=== PATIENT | female | born 1970 | race American Indian/Alaskan Native ===

== ENCOUNTER 2016-11-21 14:27 | Inpatient (IN) | payer BC ==
[2016-11-21] MEDS ORDERED: ZOFRAN IV ONE ×2 (15:35→21:21)
[2016-11-21] MEDS ORDERED: NACL 0.9% 1000 ML 1,000 ML IV ONE ×2 (15:36→21:21)
--- NOTE | 2016-11-21 15:36 | Emergency Department Report ---
<JUDITH STEWART - Last Filed: 11/21/16 18:57> ED General Adult HPI - General Chief complaint: Nausea/Vomiting/Diarrhea Stated complaint: NAUSEA/HOT Time Seen by Provider: 11/21/16 15:20 Source: patient Mode of arrival: Wheelchair Limitations: No Limitations - History of Present Illness Initial comments: Patient comes in the ER today after having a single episode approximately one hour ago while she was working upstairs and she had sudden episode of feeling very hot as well as nauseated. Patient denies any actual vomiting. Patient does state that she has pain in her upper back without any known injury. Patient says that she is feeling a little bit better now as she has cooled off but she continues to be nauseated with back pain. Denies any chest pain, shortness of breath, headache. Patient does state that she is on her menses currently. Denies any dysuria. Patient has not taken anything for her symptoms other than sitting down and relaxing. Patient denies any past history of anxiety. -: Sudden, hour(s) (1) - Related Data Home Medications Medication Instructions Recorded Confirmed Last Taken Atenolol [Tenormin] 25 mg PO DAILY 06/05/16 06/05/16 Unknown Previous Rx's Medication Instructions Recorded Last Taken Type Atenolol [Tenormin] 50 mg PO QDAY #30 tablet 06/06/16 Unknown Rx Methimazole 10 mg PO BID #60 tablet 06/06/16 Unknown Rx Ondansetron [Zofran Odt] 4 mg PO TID PRN #15 tab.rapdis 11/21/16 Unknown Rx traMADol [Ultram 50 MG tab] 50 mg PO Q6HR PRN #18 tablet 11/21/16 Unknown Rx Allergies Allergy/AdvReac Type Severity Reaction Status Date / Time cashew nut Allergy Anaphylaxis Verified 06/05/16 10:13 Fish Containing Products Allergy Anaphylaxis Verified 06/05/16 10:13 shellfish derived Allergy Anaphylaxis Verified 06/05/16 10:13 tomato Allergy Hives Verified 06/05/16 10:13 ED Review of Systems ROS: Stated complaint: NAUSEA/HOT Other details as noted in HPI Constitutional: other (sensation of feeling hot). denies: chills Eyes: denies: eye pain, eye discharge, vision change ENT: epistaxis, congestion. denies: ear pain, throat pain Respiratory: denies: cough, shortness of breath, SOB with exertion, SOB at rest , wheezing Cardiovascular: edema. denies: chest pain, palpitations, dyspnea on exertion, syncope Endocrine: no symptoms reported Gastrointestinal: nausea. denies: abdominal pain, vomiting, diarrhea, constipation Genitourinary: denies: urgency, dysuria, discharge Musculoskeletal: back pain. denies: joint swelling, arthralgia Skin: denies: rash, lesions Neurological: denies: headache, weakness, numbness, paresthesias, confusion Psychiatric: denies: anxiety, depression Hematological/Lymphatic: denies: easy bleeding, easy bruising ED Past Medical Hx - Past Medical History Hx Hypertension: Yes Hx Congestive Heart Failure: No Hx Diabetes: No Hx Asthma: No Hx COPD: No Additional medical history: HYPERTHYROID - Surgical History Past Surgical History?: No - Social History Smoking Status: Never Smoker Substance Use Type: None - Medications Home Medications: Home Medications Medication Instructions Recorded Confirmed Last Taken Type Atenolol [Tenormin] 25 mg PO DAILY 06/05/16 06/05/16 Unknown History Atenolol [Tenormin] 50 mg PO QDAY #30 tablet 06/06/16 Unknown Rx Methimazole 10 mg PO BID #60 tablet 06/06/16 Unknown Rx Ondansetron [Zofran Odt] 4 mg PO TID PRN #15 tab.rapdis 11/21/16 Unknown Rx traMADol [Ultram 50 MG tab] 50 mg PO Q6HR PRN #18 tablet 11/21/16 Unknown Rx ED Physical Exam - General Limitations: No Limitations General appearance: alert, in no apparent distress - Head Head exam: Present: atraumatic, normocephalic, normal inspection - Eye Eye exam: Present: normal appearance, PERRL, EOMI Pupils: Present: normal accommodation - ENT ENT exam: Present: mucous membranes moist, TM's normal bilaterally, normal external ear exam, other (bilateral nasal mucosa redness and swelling of turbinates. Right near with areas of dried blood consistent with recent nosebleeds. No active bleeding noted on exam.) - Neck Neck exam: Present: normal inspection, full ROM, thyromegaly (mild thyromegaly) . Absent: tenderness, lymphadenopathy - Respiratory Respiratory exam: Present: normal lung sounds bilaterally. Absent: respiratory distress, wheezes, rales, rhonchi, chest wall tenderness, decreased breath sounds - Cardiovascular Cardiovascular Exam: Present: normal rhythm, tachycardia. Absent: systolic murmur, diastolic murmur, rubs, gallop - GI/Abdominal GI/Abdominal exam: Present: soft, tenderness (right lower quadrant), normal bowel sounds. Absent: distended, guarding, rebound, rigid - Extremities Exam Extremities exam: Present: normal inspection, normal capillary refill. Absent: joint swelling, calf tenderness - Back Exam Back exam: Present: normal inspection, full ROM, tenderness (midline spinous process tenderness noted to thoracic vertebrae), vertebral tenderness. Absent: CVA tenderness (R), CVA tenderness (L) - Neurological Exam Neurological exam: Present: alert, oriented X3, CN II-XII intact, normal gait, reflexes normal. Absent: motor sensory deficit - Psychiatric Psychiatric exam: Present: normal affect, normal mood. Absent: anxious - Skin Skin exam: Present: warm, dry, intact, normal color. Absent: rash ED Course Vital Signs 11/21/16 11/21/16 14:44 18:58 Temperature 97.9 F Pulse Rate 106 H 110 H Respiratory 16 16 Rate Blood Pressure 126/66 Blood Pressure 147/79 [Left] O2 Sat by Pulse 100 97 Oximetry ED Medical Decision Making - Lab Data Result diagrams: 11/21/16 15:39 11/21/16 15:39 Lab Results 11/21/16 11/21/16 11/21/16 Range/Units 15:39 15:39 15:39 WBC 5.6 (4.5-11.0) K/mm3 RBC 4.56 (3.65-5.03) M/mm3 Hgb 12.8 (10.1-14.3) gm/dl Hct 39.0 (30.3-42.9) % MCV 85 (79-97) fl MCH 28 (28-32) pg MCHC 33 (30-34) % RDW 13.2 (13.2-15.2) % Plt Count 154 (140-440) K/mm3 Lymph % (Auto) 29.3 (13.4-35.0) % Cannon % (Auto) 8.0 H (0.0-7.3) % Eos % (Auto) 0.9 (0.0-4.3) % Baso % (Auto) 0.2 (0.0-1.8) % Lymph # 1.6 (1.2-5.4) K/mm3 Cannon # 0.4 (0.0-0.8) K/mm3 Eos # 0.1 (0.0-0.4) K/mm3 Baso # 0.0 (0.0-0.1) K/mm3 Seg Neutrophils % 61.6 (40.0-70.0) % Seg Neutrophils # 3.4 (1.8-7.7) K/mm3 Sodium 140 (137-145) mmol/L Potassium 4.6 (3.6-5.0) mmol/L Chloride 100.7 (98-107) mmol/L Carbon Dioxide 26 (22-30) mmol/L Anion Gap 18 mmol/L BUN 26 H (7-17) mg/dL Creatinine 0.8 (0.7-1.2) mg/dL Estimated GFR > 60 ml/min BUN/Creatinine Ratio 32.50 % Glucose 104 H (65-100) mg/dL Calcium 9.7 (8.4-10.2) mg/dL Total Bilirubin 0.30 (0.1-1.2) mg/dL AST 39 (5-40) units/L ALT 47 (7-56) units/L Alkaline Phosphatase 109 (35-129) units/L Troponin T < 0.010 (0.00-0.029) ng/mL Total Protein 7.5 (6.3-8.2) g/dL Albumin 3.6 L (3.9-5) g/dL Albumin/Globulin Ratio 0.9 % Lipase 78 H (13-60) units/L TSH (0.270-4.200) mlU/mL Free T4 > 7.77 H (0.76-1.46) ng/dL Urine Color (Yellow) Urine Turbidity (Clear) Urine pH (5.0-7.0) Ur Specific [place] (1.003-1.030) Urine Protein (Negative) mg/dL Urine Glucose (UA) (Negative) mg/dL Urine Ketones (Negative) mg/dL Urine Blood (Negative) Urine Nitrite (Negative) Ur Reducing Substances Urine Bilirubin (Negative) Urine Ictotest Urine Urobilinogen (<2.0) mg/dL Ur Leukocyte Esterase (Negative) Urine WBC (Auto) (0.0-6.0) /HPF Urine RBC (Auto) (0.0-6.0) /HPF U Epithel Cells (Auto) (0-13.0) /HPF Urine Mucus /HPF Urine HCG, Qual (Negative) 11/21/16 11/21/16 Range/Units 15:39 15:42 WBC (4.5-11.0) K/mm3 RBC (3.65-5.03) M/mm3 Hgb (10.1-14.3) gm/dl Hct (30.3-42.9) % MCV (79-97) fl MCH (28-32) pg MCHC (30-34) % RDW (13.2-15.2) % Plt Count (140-440) K/mm3 Lymph % (Auto) (13.4-35.0) % Cannon % (Auto) (0.0-7.3) % Eos % (Auto) (0.0-4.3) % Baso % (Auto) (0.0-1.8) % Lymph # (1.2-5.4) K/mm3 Cannon # (0.0-0.8) K/mm3 Eos # (0.0-0.4) K/mm3 Baso # (0.0-0.1) K/mm3 Seg Neutrophils % (40.0-70.0) % Seg Neutrophils # (1.8-7.7) K/mm3 Sodium (137-145) mmol/L Potassium (3.6-5.0) mmol/L Chloride (98-107) mmol/L Carbon Dioxide (22-30) mmol/L Anion Gap mmol/L BUN (7-17) mg/dL Creatinine (0.7-1.2) mg/dL Estimated GFR ml/min BUN/Creatinine Ratio % Glucose (65-100) mg/dL Calcium (8.4-10.2) mg/dL Total Bilirubin (0.1-1.2) mg/dL AST (5-40) units/L ALT (7-56) units/L Alkaline Phosphatase (35-129) units/L Troponin T (0.00-0.029) ng/mL Total Protein (6.3-8.2) g/dL Albumin (3.9-5) g/dL Albumin/Globulin Ratio % Lipase (13-60) units/L TSH < 0.005 L (0.270-4.200) mlU/mL Free T4 (0.76-1.46) ng/dL Urine Color Yellow (Yellow) Urine Turbidity Clear (Clear) Urine pH 5.0 (5.0-7.0) Ur Specific [place] 1.015 (1.003-1.030) Urine Protein <15 mg/dl (Negative) mg/dL Urine Glucose (UA) Neg (Negative) mg/dL Urine Ketones Neg (Negative) mg/dL Urine Blood Lg (Negative) Urine Nitrite Neg (Negative) Ur Reducing Substances Not Reportable Urine Bilirubin Neg (Negative) Urine Ictotest Not Reportable Urine Urobilinogen < 2.0 (<2.0) mg/dL Ur Leukocyte Esterase Neg (Negative) Urine WBC (Auto) 2.0 (0.0-6.0) /HPF Urine RBC (Auto) 73.0 (0.0-6.0) /HPF U Epithel Cells (Auto) 2.0 (0-13.0) /HPF Urine Mucus Few /HPF Urine HCG, Qual Negative (Negative) - EKG Data -: EKG Interpreted by Ne EKG shows normal: sinus rhythm Rate: tachycardia - EKG Data Interpretation: no acute changes 11/21/16 15:56 EKG interpretation reveals sinus tachycardia at 104 bpm. T-wave inversions noted in leads V1, V2, aVR. No ST segment elevation or depression noted. - Radiology Data Radiology results: report reviewed CT report of abdomen and pelvis with contrast reveals normal gallbladder,, normal appendix, normal liver, normal spleen. Incidental findings of absent left kidney. Cysts on the left adrenal glands. Fibroids noted to uterus. Diverticula without diverticulosis noted. No signs of bowel obstruction. Normal-appearing pancreas. - Medical Decision Making Patient is nontoxic and hemodynamically stable. CT and lab results reviewed and discussed with patient in room. I believe most of patient's symptoms might be hormone related as well as fibroids on her uterus. She started her menses today. I will refer patient to PRACTICE SPECIALIST doctor for evaluation of potential partial hysterectomy. I will also refer patient to a surgeon for further evaluation of gallbladder as this may be some etiology to her symptoms of nausea. Patient was given bolus normal saline 1 L here in the ER as well as Zofran with marked improvement in symptoms. Patient is stable for discharge and is in agreement with treatment plan. Critical care attestation.: If time is entered above; I have spent that time in minutes in the direct care of this critically ill patient, excluding procedure time. ED Disposition Disposition: DISCHARGED TO HOME OR SELFCARE Is pt being admited?: No Does the pt Need Aspirin: No Condition: Good Instructions: Uterine Fibroids (ED), Diverticulosis (ED) Prescriptions: Ondansetron [Zofran Odt] 4 mg PO TID PRN #15 tab.rapdis PRN Reason: Nausea traMADol [Ultram 50 MG tab] 50 mg PO Q6HR PRN #18 tablet PRN Reason: Pain Referrals: PRIMARY CARE, [Primary Care Provider] - 3-5 Days MARGARITA WETZEL MD [Staff Physician] - 3-5 Days FRENCH WORTHY MD [Staff Physician] - 3-5 Days Forms: Work/School Release Form(ED) Time of Disposition: 19:05 <DANISH YAO - Last Filed: 11/21/16 19:26> ED Course - Reevaluation(s) Reevaluation #1: Laboratory tests were reviewed. The patient has a TSH which is undetectable and a free T4 which is beyond laboratory maximum. She is tachycardic apparently she has some sort of episode of being flushed and nauseated. I would suspect a possible dysrhythmia. Apparently she was also prerenal. There is ample indication here to call the patient back for hospitalization for thyrotoxicosis. Impression Thyrotoxicosis Plan Mid level provider was instructed to call the patient back for medical management of her thyrotoxicosis as an inpatient. Endocrine consultation is certainly desirable. Further evaluation as an inpatient is recommended. 19:22 ED Medical Decision Making - Lab Data Result diagrams: 11/21/16 15:39 11/21/16 15:39
[2016-11-21 15:53] LABS: Bilirubin,Urine NEG (Negative); Blood,Urine LG (Negative); Ketones,Urine NEG (Negative); Leukocyte Esterase,Urine NEG (Negative); Mucus,Urine FEW /HPF; Nitrite,Urine NEG (Negative); Protein,Urine <15 mg/dL mg/dL (Negative); Urobilinogen,Urine < 2.0 mg/dL (<2.0)
[2016-11-21 15:56] LABS: Basophils % (Auto) 0.2 % (0.0-1.8); Eosinophils % (Auto) 0.9 % (0.0-4.3); Hemoglobin 12.8 gm/dl (10.1-14.3); Mean Corpuscular HGB Conc 33 % (30-34); Mean Corpuscular Hemoglobin 28 pg (28-32); Mean Corpuscular Volume 85 fl (79-97); Platelet Count 154 K/mm3 (140-440); Red Blood Count 4.56 M/mm3 (3.65-5.03); Red Cell Distribution Width 13.2 % (13.2-15.2); White Blood Count 5.6 K/mm3 (4.5-11.0)
[2016-11-21 16:18] LABS: Alanine Aminotransferase 47 units/L (7-56); Albumin 3.6 g/dL (3.9-5); Albumin/Globulin Ratio 0.9 %; Alkaline Phosphatase 109 units/L (35-129); Anion Gap 18 mmol/L; Blood Urea Nitrogen 26 mg/dL (7-17); Calcium 9.7 mg/dL (8.4-10.2); Carbon Dioxide 26 mmol/L (22-30); Chloride 100.7 mmol/L (98-107); Glucose 104 mg/dL (65-100); Lipase 78 units/L (13-60); Potassium 4.6 mmol/L (3.6-5.0); Sodium 140 mmol/L (137-145); Total Protein 7.5 g/dL (6.3-8.2)
--- NOTE | 2016-11-21 17:19 | XRay Report ---
FINAL REPORT EXAM: XR SPINE THORACIC 3V HISTORY: BACK Pain TECHNIQUE: 3 views thoracic spine PRIORS: None. FINDINGS: The vertebral bodies demonstrate normal height and alignment. The disk spaces are within normal limits. The posterior elements appear intact. Perivertebral soft tissues are unremarkable. IMPRESSION: Negative thoracic spine series
--- NOTE | 2016-11-21 18:32 | Cat Scan Report ---
FINAL REPORT PROCEDURE: CT abdomen and pelvis with contrast. TECHNIQUE: Computerized axial tomography of the abdomen and pelvis was performed after the IV injection of iodinated nonionic contrast. HISTORY: Abdominal pain, elevated lipase. COMPARISON: No prior studies are available for comparison. FINDINGS: The lung bases are clear. There are no pleural effusions. The heart size is normal. The liver and spleen appear normal. The gallbladder is present. The pancreas appears normal. There are no definite signs of pancreatitis. The pancreatic duct is prominent. This is a nonspecific finding. It could be a normal variant. It could represent a distal pancreatic duct obstruction. Clinical correlation is recommended to decide whether further evaluation is warranted. The right adrenal gland appears normal. There are 2 small ovoid cystic masses located very close to the lateral limb of the left adrenal gland. These each measure approximately 11 millimeters x 9 millimeters in cross-section. There is a tiny calcification in the wall of the more posterior mass. There is a 3rd smaller cystic mass measuring 5.2 millimeters x 4.9 millimeters in cross-section. This small cyst also has a tiny calcification in the wall. The appearance of these findings is unusual. I am not certain if they actually connect to the left adrenal gland. The left kidney is absent and it is possible that these represent some postsurgical lymphoceles or seromas. They are of doubtful clinical significance. I would suggest getting a follow-up CT scan to help document stability however. The right kidney is enlarged. There is a small cortical cyst in the right kidney. The abdominal aorta has a normal caliber. There is no retroperitoneal adenopathy. There are diverticula in the ascending colon and descending colon. There are no signs of acute diverticulitis. A normal appendix is visible. The bladder is unremarkable. The uterus is enlarged and lobulated consistent with multiple leiomyomas. The adnexal regions are unremarkable. The regional skeleton appears intact. IMPRESSION: Previous left nephrectomy versus congenital absence of the left kidney. Normal appearing pancreas with dilated pancreatic duct as discussed above. Small indeterminate cystic masses near the left adrenal gland as discussed above. Mild colonic diverticulosis. Enlarged uterus with multiple leiomyomas.
--- NOTE | 2016-11-21 21:20 | Emergency Department Report ---
HPI - General Chief Complaint: Nausea/Vomiting/Diarrhea Time Seen by Provider: 11/21/16 15:20 - HPI HPI: This is a 46-year-old [place]ro[place]izen [place] female who presents to the emergency department with the complaint of an episode today at work in which the patient felt like she was very hot and laughs when I describe it as a "hot flash" because it is much worse than that. She also said that she felt very nauseated but did not have any vomiting. The patient has been dealing with some intermittent dizziness, intermittent shortness of breath and abdominal pains over the past week or so. She was seen by the mid-level provider earlier today and had a CT scan of the abdomen and pelvis that showed uterine fibroids. The labs also showed that the patient has severe hyperthyroidism with a TSH of almost 0 and a free T4 greater than the upper limit of 7.77. The patient does have a history of hyperthyroidism and used to be on methimazole and atenolol. Her primary care doctor is Dr. Engle and she has a completion supervisor Dr. Jean. The patient says that she stopped taking the methimazole because it was found that she has "blood in my liver" and was told that it could be a side effect. She was not told to stop the medication by the completion supervisor who has told her that she has two choices "surgery or radiation." ED Past Medical Hx - Past Medical History Hx Hypertension: Yes Hx Congestive Heart Failure: No Hx Diabetes: No Hx Asthma: No Hx COPD: No Additional medical history: HYPERTHYROID - Surgical History Past Surgical History?: No - Social History Smoking Status: Never Smoker Substance Use Type: None - Medications Home Medications: Home Medications Medication Instructions Recorded Confirmed Last Taken Type Atenolol [Tenormin] 25 mg PO DAILY 06/05/16 06/05/16 Unknown History Atenolol [Tenormin] 50 mg PO QDAY #30 tablet 06/06/16 Unknown Rx Methimazole 10 mg PO BID #60 tablet 06/06/16 Unknown Rx Ondansetron [Zofran Odt] 4 mg PO TID PRN #15 tab.rapdis 11/21/16 Unknown Rx traMADol [Ultram 50 MG tab] 50 mg PO Q6HR PRN #18 tablet 11/21/16 Unknown Rx ED Review of Systems ROS: Stated complaint: NAUSEA/HOT Other details as noted in HPI Constitutional: diaphoresis, other (sensation of feeling hot). denies: chills Eyes: denies: eye pain, eye discharge, vision change ENT: denies: ear pain, throat pain Respiratory: denies: cough, shortness of breath, SOB with exertion, SOB at rest , wheezing Cardiovascular: denies: chest pain, palpitations, dyspnea on exertion, syncope Endocrine: no symptoms reported Gastrointestinal: abdominal pain, nausea. denies: vomiting, diarrhea, constipation Genitourinary: denies: urgency, dysuria, discharge Musculoskeletal: back pain. denies: joint swelling, arthralgia Skin: denies: rash, lesions Neurological: other (dizziness). denies: headache, weakness, numbness, paresthesias, confusion Physical Exam - Physical Exam Vital Signs: Vital Signs 11/21/16 11/21/16 14:44 18:58 Temperature 97.9 F Pulse Rate 106 H 110 H Respiratory 16 16 Rate Blood Pressure 126/66 Blood Pressure 147/79 [Left] O2 Sat by Pulse 100 97 Oximetry Physical Exam: GENERAL: The patient is well-developed well-nourished. HEENT: Normocephalic. Atraumatic. Extraocular motions are intact. Patient has moist mucous membranes. Pupils equal reactive to light bilaterally. NECK: Supple. Trachea is midline. CHEST/LUNGS: Clear to auscultation. There is no respiratory distress noted. HEART/CARDIOVASCULAR: Regular. There is mild tachycardia. There is no gallop rub or murmur. ABDOMEN: Abdomen is soft. There is no tenderness to palpation of the abdomen but the patient complains of some mild discomfort. No guarding rebound tenderness. Patient has normal bowel sounds. There is no abdominal distention. SKIN: Skin is warm and dry. NEURO: The patient is awake, alert, and oriented. The patient is cooperative. The patient has no focal neurologic deficits. The patient has normal speech. MUSCULOSKELETAL: There is no tenderness or deformity. There is no limitation range of motion. There is no evidence of acute injury. Muscle strength 5 out of 5 upper and lower extremities bilaterally. Cap refill less than 2 seconds. ED Course Vital Signs 11/21/16 11/21/16 14:44 18:58 Temperature 97.9 F Pulse Rate 106 H 110 H Respiratory 16 16 Rate Blood Pressure 126/66 Blood Pressure 147/79 [Left] O2 Sat by Pulse 100 97 Oximetry ED Medical Decision Making - Lab Data Result diagrams: 11/21/16 15:39 11/21/16 15:39 - Radiology Data Radiology results: report reviewed, image reviewed interpreted by me: Chest x-ray did not show any acute process. Heart is normal shape and size. No effusions. No pneumothorax. No signs of pneumonia seen. PROCEDURE: CT abdomen and pelvis with contrast. TECHNIQUE: Computerized axial tomography of the abdomen and pelvis was performed after the IV injection of iodinated nonionic contrast. HISTORY: Abdominal pain, elevated lipase. COMPARISON: No prior studies are available for comparison. FINDINGS: The lung bases are clear. There are no pleural effusions. The heart size is normal. The liver and spleen appear normal. The gallbladder is present. The pancreas appears normal. There are no definite signs of pancreatitis. The pancreatic duct is prominent. This is a nonspecific finding. It could be a normal variant. It could represent a distal pancreatic duct obstruction. Clinical correlation is recommended to decide whether further evaluation is warranted. The right adrenal gland appears normal. There are 2 small ovoid cystic masses located very close to the lateral limb of the left adrenal gland. These each measure approximately 11 millimeters x 9 millimeters in cross-section. There is a tiny calcification in the wall of the more posterior mass. There is a 3rd smaller cystic mass measuring 5.2 millimeters x 4.9 millimeters in cross-section. This small cyst also has a tiny calcification in the wall. The appearance of these findings is unusual. I am not certain if they actually connect to the left adrenal gland. The left kidney is absent and it is possible that these represent some postsurgical lymphoceles or seromas. They are of doubtful clinical significance. I would suggest getting a follow-up CT scan to help document stability however. The right kidney is enlarged. There is a small cortical cyst in the right kidney. The abdominal aorta has a normal caliber. There is no retroperitoneal adenopathy. There are diverticula in the ascending colon and descending colon. There are no signs of acute diverticulitis. A normal appendix is visible. The bladder is unremarkable. The uterus is enlarged and lobulated consistent with multiple leiomyomas. The adnexal regions are unremarkable. The regional skeleton appears intact. IMPRESSION: Previous left nephrectomy versus congenital absence of the left kidney. Normal appearing pancreas with dilated pancreatic duct as discussed above. Small indeterminate cystic masses near the left adrenal gland as discussed above. Mild colonic diverticulosis. Enlarged uterus with multiple leiomyomas. Transcribed By: MRM Dictated By: CYNTHIA CUI MD Electronically Authenticated By: CYNTHIA CUI MD Signed Date/Time: 11/21/16 519 - Medical Decision Making This is a 46-year-old female who presents to the emergency department today from work here with complaint of extreme hot flash, some dizziness, nausea without vomiting. She was seen by the [facility] provider and had x-ray imaging of the thoracic spine and a CT of the abdomen and pelvis which resulted as uterine fibroids. As part of her workup she had labs that evaluated her history of hyperthyroidism. He came back showing severe hypothyroidism with a free T4 greater than the max of 7.77. We called the patient back to the hospital after she was discharged by the [facility] and we did a further history and physical. The patient has admitted to a few weeks of intermittent shortness of breath, hot flashes, dizziness, abdominal pain. She also admits to stopping her methimazole on her own. She has had tachycardia but no fever. Patient does not have any focal, motor or sensory deficits. While the patient does not appear to have any significant thyroid storm she does appear to have some thyrotoxicosis. She'll be admitted to the hospital for further evaluation and has been accepted for admission by the hospitalist, Dr. Donahue. - Differential Diagnosis hyperthyroidism, thyroid storm, thyrotoxicosis, uterine fibroids, Critical Care Time: No Critical care attestation.: If time is entered above; I have spent that time in minutes in the direct care of this critically ill patient, excluding procedure time. ED Disposition Clinical Impression: Nausea, Right lower quadrant abdominal pain, Dizziness, Uterine fibroid, Congenital single kidney Thyrotoxicosis Qualifiers: Thyrotoxicosis type: other Thyrotoxic crisis or storm presence: with thyrotoxic crisis or storm Qualified Code(s): E05.81 - Other thyrotoxicosis with thyrotoxic crisis or storm Disposition: OP ADMITTED IP TO THIS HOSP Is pt being admited?: Yes Condition: Good Time of Disposition: 00:17
[2016-11-21] MEDS ORDERED: DULCOLAX PR PRN (22:08)
[2016-11-21] MEDS ORDERED: TYLENOL PO PRN (22:08)
[2016-11-21] MEDS ORDERED: ZOFRAN IV PRN (22:08)
[2016-11-21] MEDS ORDERED: MILK OF MAGNESIA PO PRN (22:08)
--- NOTE | 2016-11-21 22:12 | History and Physical Report ---
History of Present Illness Date of examination: 11/21/16 History of present illness: 46-year-old woman with a history of hypothyroidism was been off her medication since July of this year secondary to side effects that she experienced comes emergency room with complaints of nausea, feeling hot and dizzy that started yesterday. She was seen initially in the emergency room and was discharged to home, she was later called back because of her abnormal thyroid function. Patient stated that she experience brittle nails, hair loss and blood in her liver so she took herself off the methimazole. She followed up with her lace roller, she is scheduled to receive radiation therapy in December. The patient does not wish to be started on oral medications.. She had some weight loss, she cannot quantify, she had diarrhea but that has resolved. She had complaining of vague abdominal pain but that has resolved Patient denies chest pain, palpitation, shortness of breath, cough, abdominal pain, hematochezia, dysuria, frequency, focal weakness, dysarthria, fever chills , polydipsia polyuria, cold intolerance, easy bruisability, or rash or bleeding from mucosal membrane, rhinorrhea, epistaxis, earache, tinnitus, blurry vision, eye discharge, anxiety, depression. Other review of systems negative PAST SURGICAL HISTORY: None SOCIAL HISTORY: Denies alcohol, tobacco, drugs FAMILY HISTORY: Hypertension Medications and Allergies Allergies Allergy/AdvReac Type Severity Reaction Status Date / Time cashew nut Allergy Anaphylaxis Verified 06/05/16 10:13 Fish Containing Products Allergy Anaphylaxis Verified 06/05/16 10:13 shellfish derived Allergy Anaphylaxis Verified 06/05/16 10:13 tomato Allergy Hives Verified 06/05/16 10:13 Home Medications Medication Instructions Recorded Confirmed Last Taken Type Atenolol [Tenormin] 25 mg PO DAILY 06/05/16 06/05/16 Unknown History Atenolol [Tenormin] 50 mg PO QDAY #30 tablet 06/06/16 Unknown Rx Methimazole 10 mg PO BID #60 tablet 06/06/16 Unknown Rx Ondansetron [Zofran Odt] 4 mg PO TID PRN #15 tab.rapdis 11/21/16 Unknown Rx traMADol [Ultram 50 MG tab] 50 mg PO Q6HR PRN #18 tablet 11/21/16 Unknown Rx Active Meds: Active Medications Atenolol (Tenormin) 25 mg PO DAILY SHERRON Sodium Chloride (Nacl 0.9% 1000 Ml) 1,000 mls @ 999 mls/hr IV BOLUS ONE Stop: 11/21/16 22:21 Last Admin: 11/21/16 22:09 Dose: 999 mls/hr Exam - Physical Exam Narrative exam: Gen. appearance: Patient lying in bed, no apparent distress HEENT: Normocephalic, atraumatic, pupils equally round and reactive to light, extraocular movement intact, and no sclericterus,. No JVD or thyromegaly or nodule,neck supple, no carotid bruit ,mucous membranes moist, no exudate or erythema Heart: S1, S2, regular rate and rhythm Lungs: Clear to auscultation bilaterally, breathing comfortable Abdomen: Positive bowel sounds, nontender, nondistended, no organomegaly Extremity: No edema, cyanosis, clubbing Skin: No rash, nodules, warm, dry Neuro: Oriented 3, cranial nerves II-12 intact, speech is fluent, motor and sensory intact - Constitutional Vitals: Temp Pulse Resp BP Pulse Ox 97.9 F 110 H 16 147/79 97 11/21/16 14:44 11/21/16 18:58 11/21/16 18:58 11/21/16 18:58 11/21/16 18:58 Results - Labs CBC & Chem 7: 11/21/16 15:39 11/21/16 15:39 Labs: Abnormal lab results 11/21/16 11/21/16 11/21/16 Range/Units 15:39 15:39 15:39 [place] % (Auto) 8.0 H (0.0-7.3) % BUN 26 H (7-17) mg/dL Glucose 104 H (65-100) mg/dL Albumin 3.6 L (3.9-5) g/dL Lipase 78 H (13-60) units/L TSH (0.270-4.200) mlU/mL Free T4 > 7.77 H (0.76-1.46) ng/dL 11/21/16 Range/Units 15:39 [place] % (Auto) (0.0-7.3) % BUN (7-17) mg/dL Glucose (65-100) mg/dL Albumin (3.9-5) g/dL Lipase (13-60) units/L TSH < 0.005 L (0.270-4.200) mlU/mL Free T4 (0.76-1.46) ng/dL - Imaging and Cardiology Chest x-ray: image reviewed CT scan - abdomen: report reviewed CT scan - pelvis: report reviewed Assessment and Plan Thyrotoxicosis Mild dehydration Patient does not wish to be started on oral therapy Start atenolol, first dose now, 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 Mcclellan at [phone] Start IV fluids, DVT prophylaxis
[2016-11-21] MEDS ORDERED: NACL 0.9% 1000 ML 1,000 ML IV SCH (23:00)
[2016-11-21] MEDS ORDERED: TENORMIN ONE (23:14)
[2016-11-21] MEDS: TENORMIN PO SCH (23:17)
[2016-11-22 06:24] LABS: Basophils % (Auto) 0.2 % (0.0-1.8); Eosinophils % (Auto) 2.7 % (0.0-4.3); Hematocrit 32.6 % (30.3-42.9); Hemoglobin 10.7 gm/dl (10.1-14.3); Mean Corpuscular HGB Conc 33 % (30-34); Mean Corpuscular Hemoglobin 28 pg (28-32); Mean Corpuscular Volume 85 fl (79-97); Platelet Count 118 K/mm3 (140-440); Red Blood Count 3.82 M/mm3 (3.65-5.03); Red Cell Distribution Width 13.2 % (13.2-15.2); White Blood Count 5.1 K/mm3 (4.5-11.0)
[2016-11-22 06:34] LABS: Anion Gap 17 mmol/L; Blood Urea Nitrogen 21 mg/dL (7-17); Calcium 9.2 mg/dL (8.4-10.2); Carbon Dioxide 22 mmol/L (22-30); Chloride 105.9 mmol/L (98-107); Glucose 86 mg/dL (65-100); Potassium 4.2 mmol/L (3.6-5.0); Sodium 141 mmol/L (137-145)
--- NOTE | 2016-11-22 07:30 | XRay Report ---
ROUTINE CHEST, TWO VIEWS: HISTORY: Shortness of breath. The trachea, heart, mediastinal contour, lung vizcarra and bony thorax are unremarkable. IMPRESSION: Unremarkable chest x-ray.
[2016-11-22] MEDS ORDERED: LOVENOX SUB-Q SCH (10:00)
[2016-11-22] MEDS: TENORMIN PO SCH (10:39)
--- NOTE | 2016-11-22 13:56 | Discharge Summary ---
Providers - Providers Date of Admission: 11/21/16 22:08 Date of discharge: 11/22/16 Attending physician: KATHIE HUITRON Primary care physician: [employer] Hospitalization Condition: Good Pertinent studies: CT scan which showed nephrectomy and a simple small cyst by left adrenal gland and multiple leiomyomas. Neck cervical x-ray negative. Chest x-ray negative. Hospital course: Actually admitted for an episode of back pain and neck pain and feeling dizzy. Patient did not throw up did not have any nausea vomiting problem for patient had incidental finding of TSH of 0.005 and free T4 of 7.7. It was thought the patient may have thyrotoxicosis thyroid storm therefore she was admitted and observed. Patient did not want to take methimazole secondary to side effects. Spoke with [facility] patient is already set up for radiation treatment. We'll discharge for radiation treatment. Was never tachycardic no fever anxiety no tremors. Disposition: DISCHARGED TO HOME OR SELFCARE - Discharge Diagnoses (1) Thyrotoxicosis Status: Acute Qualifiers: Thyrotoxicosis type: T Thyrotoxic crisis or storm presence: T Comment: Stable set up for radiation at [facility]. Patient is stable will discharge home on beta angelia did well on beta angelia. Core Measure Documentation - Palliative Care Palliative Care/ Comfort Measures: Not Applicable - Core Measures Any of the following diagnoses?: none Exam - Constitutional Vitals: Temp Pulse Resp BP Pulse Ox 98.0 F 98 H 18 119/58 99 11/22/16 08:00 11/22/16 08:00 11/22/16 08:00 11/22/16 08:00 11/22/16 08:00 General appearance: Present: no acute distress, well-nourished - EENT Eyes: Present: PERRL ENT: hearing intact, clear oral mucosa - Neck Neck: Present: supple, normal ROM - Respiratory Respiratory effort: normal - Cardiovascular Heart rate: 95 Heart Sounds: Present: S1 & S2. Absent: rub, click - Extremities Extremities: pulses symmetrical, No edema Peripheral Pulses: within normal limits - Abdominal General gastrointestinal: Present: soft, non-tender, non-distended, normal bowel sounds Female genitourinary: Present: normal - Integumentary Integumentary: Present: clear, warm, dry - Musculoskeletal Musculoskeletal: gait normal, strength equal bilaterally - Psychiatric Psychiatric: appropriate mood/affect, intact judgment & insight - Neurologic Neurologic: CNII-XII intact, moves all extremities Plan Activity: no restrictions, fall precautions Weight Bearing Status: Full Weight Bearing Diet: regular Follow up with: FRENCH WORTHY MD [Staff Physician] - 3-5 Days PRIMARY CARE, [Primary Care Provider] - 3-5 Days MARGARITA WETZEL MD [Staff Physician] - 3-5 Days Forms: Work/School Release Form(ED) Prescriptions: Ondansetron [Zofran Odt] 4 mg PO TID PRN #15 tab.rapdis PRN Reason: Nausea traMADol [Ultram 50 MG tab] 50 mg PO Q6HR PRN #18 tablet PRN Reason: Pain
[2016-11-22 14:41] VITALS: BP 127/61
== END 2016-11-22 15:30 | disposition home or self-care (01) | DRG 644 ==
LOC: ED 14:27 → 4A 22:08
PROVIDERS: ADMIT Internal Medicine; ATTEND Internal Medicine
DX: E05.90 Thyrotoxicosis, unspecified without thyrotoxic crisis or storm (principal); Q60.0 Renal agenesis, unilateral; E86.0 Dehydration; I10 Essential (primary) hypertension; D25.9 Leiomyoma of uterus, unspecified; Z90.5 Acquired absence of kidney; Z82.49 Family history of ischemic heart disease and other diseases of the circulatory system
CPT/HCPCS: 36415; 71020; 72072; 74177; 80048; 80053; 81001; 81025; 83690; 84439; 84443; 84484; 85025; 93005; 93010; 96361; 96374; 96375; 99285; J1650; J2405; J7030; Q9967